=== PATIENT | female | born 1960 | race Caucasian/White ===

== ENCOUNTER 2023-06-29 17:49 | Emergency (ER) | payer MEDICARE ==
--- NOTE | 2023-06-29 18:13 | ED Physician Documentation ---
History of Present Illness - Stated complaint Stated Complaint: HIGH BP - Chief complaint Chief Complaint: Neuro - Additonal information Additional information: 63-year-old female presents the emergency department for evaluation of an atypical neurologic event. She reports that Tuesday night, 4 days ago, she was laying in bed listening to an audiobook. She began to develop a mild headache. She thought she was feeling dizzy and off so she attempted to sit up. When she sat up at the side of the bed she suddenly keeled over to the right side falling off the bed. She states that for perhaps a minute she was completely paralyzed and unable to move any of her extremities or call for help. After about a minute the symptoms subsided and she was able to get up and go back to bed. When she woke up the next morning she thought that perhaps she had dreamed it but she saw the disarray of the room. She denies any loss of bowel or bladder function. She denied having any headache after going to bed. Denies any chest pain, shortness of air. No nausea or vomiting. Denies any substance use or alcohol use. No tobacco use. Reports a longstanding history of untreated hypertension. Review of Systems Constitutional: denies: Fever, Chills Cardiac: reports: Reviewed and negative Respiratory: reports: Reviewed and negative GI: reports: Reviewed and negative : reports: Reviewed and negative Skin: reports: Reviewed and negative Musculoskeletal: reports: Reviewed and negative Neurologic: reports: Other (Brief episode of generalized paralysis lasting less than 1 minute) PD PAST MEDICAL HISTORY - Present Medications Home Medications: Ambulatory Orders Medication Instructions Recorded Confirmed Aspirin Chewable [St Moncho 81 mg PO DAILY 06/29/23 06/29/23 Aspirin] Lisinopril [Zestril] 10 mg PO DAILY #30 tablet 06/29/23 Omeprazole Magnesium [Prilosec] 10 mg PO DAILY 06/29/23 06/29/23 - Allergies Allergies/Adverse Reactions: Allergies Allergy/AdvReac Type Severity Reaction Status Date / Time No Known Drug Allergies Allergy Verified 06/29/23 17:56 PD ED PE NORMAL - General General: Alert and oriented X 3, No acute distress, Well developed/nourished - HEENT HEENT: PERRL, EOMI, Moist mucous membranes - Neck Neck: Supple, no meningeal sign, No adenopathy - Cardiac Cardiac: RRR, No murmur, Strong equal pulses - Respiratory Respiratory: Clear bilaterally - Abdomen Abdomen: Normal bowel sounds, Soft, Non tender, Non distended - Back Back: No CVA TTP - Derm Derm: Warm and dry - Neuro Neuro: Alert and oriented X 3, 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 Relevant findings are: Rate: Rate (enter#) (102) Rhythm: Sinus tachycardia [place]: Normal Intervals: Normal GA. No: Prolonged QT QRS: Low voltage Ischemia: Non specific changes Compare to prior EKG: Old EKG unavailable Computer interpretation: Agree with computer - Labs Labs: Laboratory Tests 06/29/23 06/29/23 06/29/23 18:15 18:15 18:15 WBC 7.3 RBC 4.34 Hgb 13.7 Hct 42.0 MCV 96.8 MCH 31.6 H MCHC 32.6 RDW 12.1 Plt Count 392 MPV 9.4 Neut # (Auto) 4.3 Lymph # (Auto) 1.9 [place] # (Auto) 0.6 Eos # (Auto) 0.4 Baso # (Auto) 0.1 Absolute Nucleated RBC 0.00 Nucleated RBC % 0.0 PT 11.4 INR 1.1 Sodium 135 Potassium 3.7 Chloride 106 Carbon Dioxide 19 L Anion Gap 10.0 BUN 16 Creatinine 0.9 Estimated GFR (MDRD) 63 L Glucose 137 H Calcium 9.1 Total Bilirubin 0.4 AST 23 ALT 17 Alkaline Phosphatase 79 Total Protein 8.4 H Albumin 3.9 Globulin 4.5 H Albumin/Globulin Ratio 0.9 L Lipase 35 - Rads (name of study) cxr Relevant Findings:: Final report received (NO ACUTE CARDIOPULMONARY PROCESS) PD Medical Decision Making - ED course Complexity details: reviewed results, re-evaluated patient, d/w patient ED course: 63-year-old female presents emergency department for ED evaluation of a neurologic event 4 days ago where she developed a brief headache, sat up in bed and then collapsed to the floor where she was unable to move her arms or legs f or about 1 minute before the symptoms fully resolved. She does have a longstanding history of untreated hypertension. She went to a local walk-in clinic today to discuss the events of Tuesday and they referred her to the ER. On presentation to the emergency department she is alert and well-appearing. Slightly anxious. Initial heart rate was 115 but after time and observation in the ER her heart rate has normalized to the high 80s. She was noted to be hypertensive with systolic pressures in the 160s to 180s. I did obtain CBC and electrolytes and per my interpretation no acute worrisome abnormalities were noted. Her EKG is interpreted by myself showed no acute ischemic findings. Neurological exam including cerebellar exam was unremarkable. Without an obvious source for the neurologic event on Tuesday we did obtain a noncontrast CT of the head which showed no acute abnormalities. Patient presents today without any acute findings suggestive of CVA. History was not compatible with seizure etiology or infectious etiology/encephalitis At this time the patient appears well and does desire to be discharged home. She will be started on lisinopril for further management of her blood pressure. She is advised to begin taking her blood pressures at home and keep a record for follow-up with her PCP. She may benefit from an outpatient MRI for further evaluation of the event on Tuesday. The usual emergent return precautions for worsening symptoms was discussed. Departure - Departure Disposition: 01 Home, Self Care Clinical Impression: Neurologic complaint, functional Hypertension Qualifiers: Hypertension type: unspecified Qualified Code(s): I10 - Essential (primary) hypertension Condition: Stable Record reviewed to determine appropriate education?: Yes Prescriptions: Lisinopril [Zestril] 10 mg PO DAILY #30 tablet Comments: As discussed at the bedside I do not have a good explanation for the episode you described Tuesday night where you fell to the ground and were unable to move for about [address] scan of your head today did not show any obvious abnormalities. You were very concerned about your elevated blood pressure which has been untreated for several years. Today in the emergency department your labs did not show any worrisome findings. We are starting you on lisinopril and a blood pressure medication. The first few times you take it please monitor for any associated side effects and symptoms such as feeling lightheaded or dizzy. Continue follow-up with your primary care doctor as scheduled. I would like you to discuss your neurological event on Tuesday. They may want to consider further outpatient testing such as an MRI of your brain. Return immediately to the ER if you have similar events, develop sudden severe chest pain or have shortness of air. Forms: PCP List NIHSS - Time Time: 18:13 - Level of Consciousness Level of consciousness: (0) Alert, Keenly responsive LOC Questions: (0) Answers both Q's correct LOC Commands: (0) Performs both correctly - Gaze Best Gaze: (0) Normal - Visual Visual: (0) No loss - Facial Palsy Facial Palsy: (0) Normal, symmetrical movement - Motor Arms (both separate) Motor Arm (right): (0) No drift Motor Arm (left): (0) No drift - Motor Legs (both separate) Motor Leg (right): (0) No drift Motor Leg (left): (0) No drift - Limb Ataxia Limb Ataxia: (0) Absent - Sensory Sensory: (0) Normal - Best Language Best Language: (0) No aphasia - Dysarthria Dysarthria: (0) Normal - Extinction and Inattention (formally neg Extinction and inattention: (0) No abnormality - Total Score/Results Total Score/Result: 0
[2023-06-29 18:23] LABS: BASOPHILS # (AUTO) 0.1 10^3/uL (0.0-0.1); BASOPHILS % (AUTO) 0.8 %; EOSINOPHILS # (AUTO) 0.4 10^3/uL (0.0-0.7); EOSINOPHILS % (AUTO) 5.2 %; HGB - HEMOGLOBIN 13.7 g/dL (12.0-16.0); LYMPHOCYTES # (AUTO) 1.9 10^3/uL (1.5-3.5); LYMPHOCYTES % (AUTO) 26.2 %; MEAN CORPUSCULAR HEMOGLOBIN 31.6 pg (27.0-31.0); MEAN CORPUSCULAR HGB CONC 32.6 g/dL (32.0-36.0); MEAN CORPUSCULAR VOLUME 96.8 fL (81.0-99.0); MEAN PLATELET VOLUME 9.4 fL (7.9-10.8); MONOCYTES # (AUTO) 0.6 10^3/uL (0.0-1.0); MONOCYTES % (AUTO) 7.7 %; NEUTROPHILS # (AUTO) 4.3 10^3/uL (1.5-6.6); NEUTROPHILS % (AUTO) 59.8 %; PLT - PLATELET COUNT 392 10^3/uL (130-450); RED BLOOD COUNT 4.34 10^6/uL (4.20-5.40); RED CELL DISTRIBUTION WIDTH 12.1 % (12.0-15.0); WHITE BLOOD COUNT 7.3 x10^3/uL (4.8-10.8)
[2023-06-29 18:34] LABS: ALBUMIN 3.9 g/dL (3.2-5.5); ALBUMIN/GLOBULIN RATIO 0.9 (1.0-2.2); BILIRUBIN,TOTAL 0.4 mg/dL (0.2-1.0); CALCIUM 9.1 mg/dL (8.5-10.3); CREATININE 0.9 mg/dL (0.4-1.0); INR 1.1 (0.8-1.2); POTASSIUM 3.7 mmol/L (3.5-5.0); PT - PROTHROMBIN TIME 11.4 secs (9.9-12.6); TOTAL PROTEIN 8.4 g/dL (6.7-8.2)
--- NOTE | 2023-06-29 19:54 | XRAY Report ---
PROCEDURE: Chest 1 View X-Ray INDICATIONS: Chest Pain TECHNIQUE: One view of the chest was acquired. COMPARISON: None. FINDINGS: Surgical changes and devices: None. Lungs and pleura: No pleural effusions or pneumothorax. Lungs are clear. Mediastinum: Mediastinal contours appear normal. Heart size is normal. Bones and chest wall: No suspicious bony lesions. Overlying soft tissues appear unremarkable. IMPRESSION: No acute cardiopulmonary process. Reviewed by: David Chavis MD on 06/29/2023 7:53 PM PDT Approved by: David Chavis MD on 06/29/2023 7:53 PM PDT Station ID: [id number]
--- NOTE | 2023-06-29 20:33 | CT Report ---
PROCEDURE: HEAD WO INDICATIONS: episode of brief paralysis TECHNIQUE: Noncontrast 4.5 mm thick angled axial sections acquired from the foramen magnum to the vertex. For r adiation dose reduction, the following was used: automated exposure control, adjustment of mA and/or kV according to patient size. COMPARISON: None. FINDINGS: Image quality: Excellent. CSF spaces: Basal cisterns are patent. No extra-axial fluid collections. Ventricles are normal in size and shape. Brain: No intracranial hemorrhage, mass, or mass effect. Mohamud-white matter interface appears preser rebecca. Skull and face: Calvarium and visualized facial bones are intact, without suspicious lesions. Sinuses: Visualized sinuses demonstrate near complete opacification of the right maxillary sinus wit h an air-fluid level. There is mild mucosal thickening in the right ethmoid sinuses. Mastoid air cell s are clear. IMPRESSION: 1. No acute intracranial abnormality. Reviewed by: Gael Shaw MD on 06/29/2023 8:31 PM PDT Approved by: Gael Shaw MD on 06/29/2023 8:31 PM PDT Station ID: [id number]
[2023-06-29 21:03] VITALS: BP 155/106; O2SAT 96
== END 2023-06-29 20:53 | disposition home or self-care (01) ==
LOC: ED 17:49
DX: R29.818 Other symptoms and signs involving the nervous system (principal); I10 Essential (primary) hypertension
CPT/HCPCS: 36415; 80053; 83690; 85025; 85610; 93005; 99284

== ENCOUNTER 2023-09-14 15:51 | Outpatient (CLI) | payer MEDICARE ==
--- NOTE | 2023-09-14 18:04 | MRI Report ---
PROCEDURE: BRAIN WO INDICATIONS: TRANSIENT NEUROLOGICAL SYMPTOMS, VERTIGO TECHNIQUE: Noncontrast axial T1 spin echo, axial T2 fast spin echo, sagittal and axial FLAIR, coronal T2 fast sp in echo, axial gradient echo, axial diffusion and ADC through the brain. COMPARISON: Correlation is made with head CT, 06/29/2023 FINDINGS: Image quality: Excellent. CSF Spaces: Basal cisterns are patent. No extra-axial fluid collections. Ventricles are normal in size and shape. Brain: No intracranial masses or hemorrhage. Mohamdu/white matter interface is normal. Brainstem appe ars normal. Diffusion-weighted images demonstrate no acute ischemic insult. No chronic ischemic ins ults. Normal intravascular flow voids are present. Skull and face: Calvarium has normal marrow signal. Orbits appear normal. Sinuses: Moderate mucosal thickening is seen within the right maxillary sinus. Milder mucosal thicken ing is seen elsewhere within the paranasal sinuses. IMPRESSION: No findings of acute or subacute infarction are seen. Reviewed by: Woodrow Chand MD on 09/14/2023 5:03 PM JACEK Approved by: Woodrow Chand MD on 09/14/2023 5:03 PM JACEK Station ID: [id number]
--- NOTE | 2023-09-15 10:28 | Ultrasound Report ---
PROCEDURE: Carotid Doppler Complete INDICATIONS: TRANSIENT NEUROLOGICAL SYMPTOMES, VERTIGO TECHNIQUE: Color and pulse Doppler interrogation was performed of both carotid systems, with image documentation and velocity measurements. COMPARISON: None. FINDINGS: Right side: Brachial blood pressure: 182/79 mm Hg. Common carotid artery peak systolic velocity: 67.4 cm/sec. Internal carotid artery peak systolic velocity: 105.1 cm/sec. Internal carotid artery end diastolic velocity: 23.4 cm/sec. External carotid artery peak systolic velocity: 106.6 cm/sec. ICA/CCA peak systolic ratio: 1.56 . Mohamud scale imaging description: Moderate atherosclerotic plaque at the bulbs. Percent internal carotid artery stenosis: Less than 50 percent stenosis. Vertebral artery: Flow direction is antegrade. Left side: Brachial blood pressure: 189/86 mm Hg. Common carotid artery peak systolic velocity: 90.3 cm/sec. Internal carotid artery peak systolic velocity: 93.7 cm/sec. Internal carotid artery end diastolic velocity: 30.1 cm/sec. External carotid artery peak systolic velocity: 92.9 cm/sec. ICA/CCA peak systolic ratio: 1.04 . Mohamud scale imaging description: No significant atherosclerotic plaque. Percent internal carotid artery stenosis: Less than 50% stenosis.. Vertebral artery: Flow direction is antegrade. IMPRESSION: 1. In the right internal carotid artery, there is less than 50 percent stenosis based on peak systoli c velocity criteria. 2. In the left internal carotid artery, there is less than 50 percent stenosis based on peak systolic velocity criteria. 3. Antegrade blood flow within the right vertebral artery. 4. Antegrade blood flow within the left vertebral artery. The estimate of stenosis included in the report of the imaging study was calculated using the [facility]-end orsed standards of carotid artery stenosis. Reviewed by: Mahamed Locke on 09/15/2023 10:27 AM PDT Approved by: Mahamed Locke on 09/15/2023 10:27 AM PDT Station ID: [id number]
== END 2023-09-14 15:52 | disposition home or self-care (01) ==
LOC: DI 15:51
PROVIDERS: ATTEND Registered Nurse
DX: R29.90 Unspecified symptoms and signs involving the nervous system (principal); R42 Dizziness and giddiness; I65.23 Occlusion and stenosis of bilateral carotid arteries
CPT/HCPCS: 93880

== ENCOUNTER 2023-10-25 13:51 | Outpatient (CLI) | payer MEDICARE, OTHER ==
--- NOTE | 2023-10-26 09:23 | Mammography Report ---
BILATERAL DIGITAL SCREENING MAMMOGRAM 3D/2D: 10/25/2023 CLINICAL: Routine screening. No prior exams were available for comparison. Both breasts are almost entirely fatty (category a/<25% glandular tissue). There are benign calcifications in both breasts. No significant masses, calcifications, or other findings are seen in either breast. IMPRESSION: BENIGN There is no mammographic evidence of malignancy. A 1 year screening mammogram is recommended. Based on the Tyrer Cuzick model (a risk assessment model) the patients lifetime risk is 4.4% and her 10 year risk is 2.1%. According to the ACR, ACS, and NCCN guidelines, an annual breast MRI exam christian g with mammogram is recommended if the patients lifetime risk is 20% or greater. This exam was interpreted at Station ID: [id number]. NOTE: For mammograms, a report in lay terms will be sent to the patient. Approximately 15% of breast malignancies will not be visualized mammographically. In the management of a palpable breast mass, a negative mammogram must not discourage biopsy of a clinically suspicious lesion. Electronically Signed By: Adair [email or web address]/[email or web address]:10/25/2023 16:14:19 letter sent: No_Letter ACR BI-RADS Category 2: Benign Finding(s) 3342F PARENCHYMAL PATTERN: (F) - The breast(s) demonstrate(s) diffuse fatty replacement. BI-RADS CATEGORY: (2) - 2 Mammogram [id number] 1 year screening LATERALITY: (B)
== END 2023-10-25 13:52 | disposition home or self-care (01) ==
LOC: DI.S 13:51
PROVIDERS: ATTEND Registered Nurse
DX: Z12.31 Encounter for screening mammogram for malignant neoplasm of breast (principal); R92.1 Mammographic calcification found on diagnostic imaging of breast